=== PATIENT | female | born 1990 | race African-American/Black ===

== ENCOUNTER 2022-03-18 00:29 | Emergency (ER) | payer MEDICAID, OTHER ==
[~2022-03-18] VITALS: Ht 157.5 cm; Wt 55.0 kg
[2022-03-18] MEDS ORDERED: HYDROCODONE/ACETAMINOPHEN 5/325MG TABLET PO ONE (04:15)
[2022-03-18] MEDS ORDERED: IBUP-2028 MT (04:46)
[2022-03-18 05:09] VITALS: BP 118/75
== END 2022-03-18 05:12 | disposition home or self-care (01) ==
LOC: ER 00:29
DX: S63.502A Unspecified sprain of left wrist, initial encounter (principal); W18.30XA Fall on same level, unspecified, initial encounter; Y93.89 Activity, other specified; Y92.89 Other specified places as the place of occurrence of the external cause; Y99.8 Other external cause status
CPT/HCPCS: 29125; 73110; 81025; 99283

== ENCOUNTER 2023-05-19 15:14 | Emergency (ER) | payer MEDICAID ==
[~2023-05-19] VITALS: Ht 157.5 cm; Wt 54.4 kg
[~2023-05-19 15:14] MED LIST: IBUP-2028 MT
[2023-05-19 15:38] VITALS: O2SAT 99
[2023-05-19 16:25] LABS: CLARITY URINE TURBID (CLEAR); COLOR URINE RED (YELLOW); GLUCOSE URINE NEGATIVE (NEGATIVE); KETONES URINE NEGATIVE (NEGATIVE); LEUKOCYTE ESTERASE URINE 2+ (NEGATIVE); NITRITE URINE POSITIVE (NEGATIVE); OCCULT BLOOD URINE 3+ (NEGATIVE); PH URINE 6.5 (4.5-8.0); PROTEIN URINE 2+ (NEGATIVE); SPECIFIC GRAVITY URINE 1.027 (1.005-1.030)
[2023-05-19 16:30] LABS: BASOPHILS % 1.1 % (0.0-2.0); HEMATOCRIT. 38.2 % (36.0-48.0); HEMOGLOBIN. 12.6 g/dL (12.0-16.0); LYMPHOCYTES % 31.9 % (20.0-50.0); MEAN PLATELET VOLUME 8.2 fl (7.4-10.4); PLATELET 245 x1000/uL (130-400); RED CELL DISTRIBUTION WIDTH 14.2 % (11.6-14.6); WHITE BLOOD COUNT 6.4 x1000/uL (4.5-11.0)
[2023-05-19 16:53] LABS: CHLORIDE 110 mEq/L (98-107); INDEX HEMOLYSI 1 (1-3); INDEX ICTERIC 1 (1-4); INDEX LIPEMIC 1 (1-3); POTASSIUM 3.5 mEq/L (3.5-5.1); SODIUM 137 mEq/L (136-145)
[2023-05-19 16:59] LABS: ALANINE AMINOTRANSFERASE 18 IU/L (13-61); ALBUMIN 3.5 g/dL (3.4-5.0); ASPARTATE AMINOTRANSFERASE 15 IU/L (15-37); BILIRUBIN TOTAL 0.7 mg/dL (0.1-1.0); CARBON DIOXIDE 28 mEq/L (21-32); CREATININE 0.6 mg/dL (0.6-1.3); GLUCOSE 79 mg/dL (70-105); PROTEIN TOTAL 7.7 g/dL (6.0-8.3); UREA NITROGEN BLOOD 12 mg/dL (7-21)
[2023-05-19 17:07] LABS: BACTERIA URINE TRACE; RBC URINE TNTC /hpf (0-2); SQUAMOUS EPITHELIAL CELL URINE 1+ /lpf (RARE/1+)
[2023-05-19] MEDS ORDERED: ONDANSETRON 4MG ODT PO ONE (17:45)
[2023-05-19] MEDS ORDERED: ACETAMINOPHEN 325MG TABLET PO ONE (17:45)
[2023-05-19 17:49] LABS: HCG SCREEN NEGATIVE
[2023-05-19] MEDS ORDERED: KETO10TA2 MT (20:07)
[2023-05-19] MEDS ORDERED: TAMS-11 MT (20:08)
[2023-05-19] MEDS ORDERED: KETOROLAC 60MG/2ML VIAL IM ONE (20:30)
[2023-05-19] MEDS ORDERED: ACETAMINOPHEN 325MG TABLET PO NR (20:45)
[2023-05-19] MEDS ORDERED: ONDANSETRON 4MG ODT PO NR (20:45)
[2023-05-19 21:34] VITALS: BP 117/76; PULSE 68; RESP 16; TEMP 98.1
== END 2023-05-19 21:35 | disposition home or self-care (01) ==
LOC: ER 15:14
DX: N83.201 Unspecified ovarian cyst, right side (principal)
CPT/HCPCS: 99285; 74176; 76830; 76856; 80053; 81003; 81025; 84703; 85025; 36415; 96372; Q0162; J1885